=== PATIENT | female | born 1985 | race Caucasian/White ===

== ENCOUNTER 2020-12-31 15:42 | Emergency (ER) | payer OTHER ==
[2020-12-31] MEDS ORDERED: EPINEPHrine 1 MG/ML SDV IM ONE (15:55)
--- NOTE | 2020-12-31 15:55 | EDM.PDOC ---
ED HPI GENERAL MEDICAL PROBLEM - General Chief Complaint: Bite:Animal, Insect Stated Complaint: BEE STING Time Seen by Provider: 12/31/20 15:44 Source of Information: Reports: Patient, RN - History of Present Illness Onset: Today, Sudden Onset Time: 15:00 Duration: Getting Worse Location: Reports: Generalized Quality: Reports: Other (itch) Severity: Severe Improves with: Reports: None Worsens with: Reports: None Context: Reports: Other (bee sting) Associated Symptoms: Reports: Rash (generalized trunk, red ), Shortness of Breath, Other (feels like difficulty swallowing) Treatments [employer]: Reports: Other Medication(s) (benadryl 50 mg) - Related Data Allergies Allergy/AdvReac Type Severity Reaction Status Date / Time amoxicillin Allergy Hives Verified 12/31/20 15:53 bee venom protein (honey bee) Allergy Anaphylactic Verified 12/31/20 15:53 Shock Home Meds: Home Meds EPINEPHrine [Epipen 2-Nilesh] 0.3 mg IJ ASDIRECTED #1 auto.injct 12/31/20 [Rx] Etonogestrel [Nexplanon] 1 implant .ROUTE ASDIRECTED 12/31/20 [History] ED ROS GENERAL - Review of Systems Review Of Systems: See Below Constitutional: Reports: No Symptoms HEENT: Reports: Throat Swelling Respiratory: Reports: Shortness of Breath Cardiovascular: Reports: No Symptoms Endocrine: Reports: No Symptoms GI/Abdominal: Reports: No Symptoms Musculoskeletal: Reports: Leg Pain (bee sting left thigh above knee) Skin: Reports: Cyanosis (hands after epi given), Pruritis, Rash, Erythema, Change in Color, Urticaria Neurological: Reports: No Symptoms Psychiatric: Reports: No Symptoms Hematologic/Lymphatic: Reports: No Symptoms Immunologic: Reports: Anaphylaxis ED EXAM, ANIMAL BITE - Physical Exam Exam: See Below Exam Limited By: No Limitations General Appearance: Alert, Moderate Distress Eye Exam: Bilateral Eye: PERRL Ears: Normal External Exam, Normal Canal Nose: Normal Inspection, Normal Mucosa Throat/Mouth: Normal Inspection, Normal Lips, Normal Gums, No Airway Compromise Head: Atraumatic Neck: Normal Inspection, Supple, Non-Tender Respiratory/Chest: No Respiratory Distress, Lungs Clear, Normal Breath Sounds Cardiovascular: Normal Peripheral Pulses, Regular Rate, Rhythm, No Edema GI/Abdominal: Normal Bowel Sounds, Soft, Non-Tender Back Exam: Normal Inspection Extremities: Redness Neurological: Alert, Oriented, CN II-XII Intact, Normal Cognition Psychiatric: Anxious Skin Exam: Rash Lymphadenopathy: Bilateral: No Adenopathy Course - Vital Signs Last Recorded V/S: Last Vital Signs Temp 36.3 C 12/31/20 15:54 Pulse 77 12/31/20 16:01 Resp 16 12/31/20 16:01 BP 102/66 12/31/20 16:01 Pulse Ox 100 12/31/20 16:01 - Orders/Labs/Meds Meds: Medications Discontinued Medications Generic Name Dose Route Start Last Admin Trade Name Lor PRN Reason Stop Dose Admin Epinephrine HCl 0.5 mg 12/31/20 15:55 12/31/20 16:16 Epinephrine 1 Mg/Ml Sdv IM 12/31/20 15:56 0.5 mg ONETIME ONE Administration Methylprednisolone Sodium Succinate 125 mg 12/31/20 15:56 12/31/20 16:16 Methylprednisolone Sodium Succinate 125 Mg/2 Ml Sdv IVPUSH 12/31/20 15:57 125 mg ONETIME ONE Administration Prior to arrival patient had taken 50 mg of Benadryl. On arrival immediate administration of half mL of epinephrine 1:1000 IM and 125 mg of Solu-Medrol IV. Patient experienced significant reduced Uncaria within a couple of minutes. Patient monitored for 1 hour post medication administration. Patient continues to improve. Patient feeling much better. Patient understands she has to go to the pharmacy and nut picker her EpiPen. In the event she needs to use them she will return to the ER immediately. Patient has significant reduction and redness, rash, anaphylaxis reaction. - Re-Assessments/Exams Free Text/Narrative Re-Assessment/Exam: 12/31/20 17:11 Monitor patient 1 hour post medication administration for anaphylaxis. Patient with significant improvement in symptoms. Patient feels comfortable with the plan. Patient will nut picker EpiPen's and have them in close proximity at all times. Patient return to ER if she needs to use her pens and or if symptoms return. Patient instructed on Benadryl and Pepcid home remedies along with the EpiPen. Departure - Departure Time of Disposition: 17:25 Disposition: Home, Self-Care 01 Condition: Fair Clinical Impression: Anaphylactic reaction - Discharge Information *PRESCRIPTION DRUG MONITORING PROGRAM REVIEWED*: Not Applicable *COPY OF PRESCRIPTION DRUG MONITORING REPORT IN PATIENT RAMA: Not Applicable Prescriptions: EPINEPHrine [Epipen 2-Nilesh] 0.3 mg IJ ASDIRECTED #1 auto.injct Instructions: Anaphylactic Reaction, Adult, Insect Bite, Adult, [id number] Referrals: PCP,None [Primary Care Provider] - Forms: ED Department Discharge Additional Instructions: If you are stung by a bee again immediately administer epi pen and proceed to ER. Sepsis Event Note (ED) - Focused Exam Vital Signs: Vital Signs Temp Pulse Resp BP Pulse Ox 12/31/20 16:01 77 16 102/66 100 12/31/20 15:54 36.3 C 73 20 106/63 100 12/31/20 15:47 36.9 C 78 16 106/63 100 - Assessment/Plan Assessment:: Bee sting, anaphylactic reaction Plan: Follow-up with primary care provider as needed.
[2020-12-31] MEDS ORDERED: methylPREDNISolone Sodium Succinate 125 MG/2 ML SDV IVPUSH ONE (15:56)
== END 2020-12-31 17:25 | disposition home or self-care (01) ==
LOC: JP.ED 15:42
DX: T63.441A Toxic effect of venom of bees, accidental (unintentional), initial encounter (principal); Z88.0 Allergy status to penicillin; Z91.030 Bee allergy status
CPT/HCPCS: 96372; 96374; 99282; J0171; J2930

== ENCOUNTER 2021-08-12 00:11 | Emergency (ER) | payer OTHER ==
[2021-08-12] MEDS ORDERED: LORazepam 1 MG Tab PO ONE (00:17)
== END 2021-08-12 01:22 | disposition home or self-care (01) ==
LOC: JP.ED 00:11
DX: F45.8 Other somatoform disorders (principal); F41.0 Panic disorder [episodic paroxysmal anxiety]; Z79.899 Other long term (current) drug therapy; Z88.0 Allergy status to penicillin
CPT/HCPCS: 36415; 80053; 85025; 93005; 93010; 99283; 99285-25; A9270-GY

== ENCOUNTER 2023-01-05 11:38 | Emergency (ER) | payer OTHER ==
[2023-01-05] MEDS ORDERED: diphenhydrAMINE 25 MG Cap PO ONE (11:46)
[2023-01-05] MEDS ORDERED: methylPREDNISolone Sodium Succinate 125 MG/2 ML SDV IM ONE (11:46)
[2023-01-05] MEDS ORDERED: diphenhydrAMINE 50 MG/ML SDV IVPUSH ONE (11:52)
[2023-01-05] MEDS ORDERED: Sodium Chloride 0.9% 10 ML Syringe FLUSH PRN (11:52)
[2023-01-05] MEDS ORDERED: methylPREDNISolone Sodium Succinate 125 MG/2 ML SDV IVPUSH ONE (11:53)
== END 2023-01-05 14:28 | disposition home or self-care (01) ==
LOC: JP.ED 11:38
DX: T63.441A Toxic effect of venom of bees, accidental (unintentional), initial encounter (principal); Z88.0 Allergy status to penicillin; Z91.030 Bee allergy status; Z86.16 Personal history of COVID-19
CPT/HCPCS: 96374; 96375; 99282; J1200; J2930; J3490